=== PATIENT | male | born 1980 | race Hispanic/Latino ===

== ENCOUNTER 2017-06-02 08:04 | Outpatient (CLI) | payer OTHER ==
--- NOTE | 2017-06-02 11:16 | XRay Report ---
Left shoulder: Pain. Routine views demonstrate subchondral cysts in the lambdoid. The humerus articular surface appears smooth. Evaluation of the joint space is somewhat limited but may be narrowed. The subacromial space is preserved. The bones are well-mineralized. No soft tissue changes noted. Impression: Findings suspicious for degenerative joint changes.
== END 2017-06-02 08:05 | disposition home or self-care (01) ==
LOC: SPVIMAG 08:04
PROVIDERS: ATTEND Orthopaedic Surgery
DX: M25.512 Pain in left shoulder (principal)